=== PATIENT | female | born 2000 | race African-American/Black ===

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

== ENCOUNTER 2018-04-24 17:16 | Emergency (ER) | payer SELFPAY ==
[2018-04-24 18:32] LABS: #Eosinphils 0.2 thou/uL (0.0-0.7); #Lymphocytes 2.7 thou/uL (1.20-3.40); #Monocytes 0.4 thou/uL (0.11-0.59); #Neutrophils 2.9 thou/uL (1.40-6.50); %Basophils 0.3 % (0.0-1.0); %Eosinophils 3.8 % (0.0-10.0); %Lymphocytes 42.6 % (28.0-48.0); %Monocytes 6.7 % (0.0-4.0); %Neutrophils 46.5 % (31.0-61.0); Mean Corpuscular HGB CONC 31.2 g/dL (32.0-36.0); Mean Corpuscular Hemoglobin 21.7 pg (25.0-35.0); Mean Corpuscular Volume 69.6 fL (78.0-98.0); Mean Platelet Volume 9.3 fL (7.4-10.4); Platelet Count 275 thou/uL (130-400); RBC Distribution Width 14.2 % (11.5-14.5); Red Blood Cell (RBC) Count 5.51 mill/uL (4.00-5.20); White Blood Cell (WBC) Count 6.3 thou/uL (4.8-10.8)
[2018-04-24 18:51] LABS: BHCG - Serum Negative (NEGATIVE)
[2018-04-24 18:52] LABS: Pregs Control Background? CLEAR/WHITE (CLR/WHITE); Pregs Control Bar Appear? YES (CONTROL BAR)
[2018-04-24 18:58] LABS: Bilirubin Negative (Negative); Blood, Urine Large (Negative); Clarity CLOUDY (Clear); Glucose, Urine (Dipstick) Negative (Negative); Leukocyte Moderate (Negative); Nitrite Negative (Negative); Pregnancy Test - Urine (BHCG) Negative (Negative); Pregu Control Background? CLEAR/WHITE (CLR/WHITE); Pregu Control Bar Appear? YES (CONTROL BAR); Protein, Urine (Dipstick) 100 mg/dL (Neg-Trace); Specific Gravity 1.031 (1.002-1.036); Specific Gravity, Urine 1.031 (1.002-1.036)
[2018-04-24 19:02] LABS: Bacteria/HPF 1+ HPF (None Seen)
[2018-04-24 19:12] LABS: Hyaline Casts/LPF 0-3 HYALINE CAST LPF (0-3 Hyaline)
[2018-04-24 19:13] LABS: Yeast-All Forms None Seen HPF (None Seen)
[2018-04-24 19:29] LABS: ALT (SGPT) 10 U/L (8-55); AST (SGOT) 17 U/L (5-34); Albumin 4.4 g/dL (3.5-5.0); Alkaline Phosphatase 106 U/L (40-150); Anion Gap 14 mmol/L (10-20); BUN (Urea Nitrogen) 13 mg/dL (7.0-18.7); Bilirubin, Total 0.5 mg/dL (0.2-1.2); Calc. Creatinine Clearance 0 mL/min (70-130); Calcium 9.5 mg/dL (7.8-10.44); Carbon Dioxide 23 mmol/L (22-29); Chloride 105 mmol/L (98-107); Estimated GFR-MDRD 84; Globulin 4.1 g/dL (2.4-3.5); Glucose 85 mg/dL (70-105); Protein, Total 8.5 g/dL (6.0-8.3); Sodium 138 mmol/L (136-145)
== END 2018-04-24 19:51 | disposition home or self-care (01) ==
LOC: ERS 17:16
DX: N93.9 Abnormal uterine and vaginal bleeding, unspecified (principal); J45.909 Unspecified asthma, uncomplicated
CPT/HCPCS: 36415; 80053; 81003; 81015; 81025; 84703; 85025; 87086; 99284

== ENCOUNTER 2019-04-14 17:46 | Emergency (ER) | payer SELFPAY | END 2019-04-14 18:53 | disposition home or self-care (01) | LOC: ERS 17:46 | DX: N61.0 Mastitis without abscess (principal); J45.909 Unspecified asthma, uncomplicated | CPT/HCPCS: 99283 ==

== ENCOUNTER 2019-06-26 16:56 | Emergency (ER) | payer SELFPAY ==
[2019-06-26] MEDS ORDERED: Ondansetron ODT 8 MG TAB ONE (17:51)
[2019-06-26 18:04] LABS: #Basophils 0.1 thou/uL (0.0-0.2); #Eosinphils 0.3 thou/uL (0.0-0.7); #Lymphocytes 2.2 thou/uL (1.20-3.40); #Monocytes 0.5 thou/uL (0.11-0.59); #Neutrophils 2.4 thou/uL (1.40-6.50); %Basophils 1.6 % (0.0-1.0); %Eosinophils 5.9 % (0.0-10.0); %Monocytes 8.9 % (0.0-10.0); %Neutrophils 43.7 % (42.0-75.0); Hemoglobin 13.3 g/dL (12.0-16.0); Mean Corpuscular HGB CONC 32.5 g/dL (32.0-36.0); Mean Corpuscular Hemoglobin 23.1 pg (27.0-31.0); Mean Corpuscular Volume 71.2 fL (78.0-98.0); Mean Platelet Volume 8.7 fL (7.4-10.4); Platelet Count 261 thou/uL (130-400); RBC Distribution Width 13.7 % (11.5-14.5); Red Blood Cell (RBC) Count 5.76 mill/uL (4.20-5.40); White Blood Cell (WBC) Count 5.5 thou/uL (4.8-10.8)
[2019-06-26 18:11] LABS: Bilirubin Negative (Negative); Blood, Urine Negative (Negative); Clarity Clear (Clear); Glucose, Urine (Dipstick) Normal (Negative); Leukocyte Negative Leu/uL (Negative); Nitrite Negative (Negative); Protein, Urine (Dipstick) 10 mg/dL (Neg-Trace); Urobilinogen Normal mg/dL (Less than 2)
[2019-06-26 18:12] LABS: Pregnancy Test - Urine (BHCG) Negative (Negative); Pregu Control Background? CLEAR/WHITE (CLR/WHITE); Pregu Control Bar Appear? YES (CONTROL BAR); Specific Gravity 1.023 (1.002-1.036)
[2019-06-26 18:21] LABS: MDiff Complete? YES; Microcytosis SLIGHT = 6-15 cells (100X) (0-5/hpf); Ovalocytes SLIGHT = 2-5 cells (100X) (0-1/hpf); Platelet Morphology Comment Appears Adequate; Polychromasia SLIGHT = 2-3 cells (100X) (0-2/hpf); Target Cells SLIGHT = 2-5 cells (100X) (0-1/hpf)
[2019-06-26 18:28] LABS: ALT (SGPT) 13 U/L (8-55); AST (SGOT) 18 U/L (5-34); Albumin 4.4 g/dL (3.5-5.0); Alkaline Phosphatase 97 U/L (40-110); Anion Gap 11 mmol/L (10-20); BUN (Urea Nitrogen) 10 mg/dL (7.0-18.7); Bilirubin, Total 0.6 mg/dL (0.2-1.2); Calc. Creatinine Clearance 0 mL/min (70-130); Calcium 9.6 mg/dL (7.8-10.44); Carbon Dioxide 26 mmol/L (22-29); Chloride 105 mmol/L (98-107); Estimated GFR-MDRD 90; Globulin 3.5 g/dL (2.4-3.5); Glucose 74 mg/dL (70-105); Lipase 34 U/L (8-78); Potassium 4.1 mmol/L (3.5-5.1); Protein, Total 7.9 g/dL (6.0-8.3); Sodium 138 mmol/L (136-145)
[2019-06-26 18:32] LABS: BHCG - Serum Negative (NEGATIVE); Pregs Control Background? CLEAR/WHITE (CLR/WHITE); Pregs Control Bar Appear? YES (CONTROL BAR)
== END 2019-06-26 19:04 | disposition home or self-care (01) ==
LOC: ERS 16:56
DX: R11.2 Nausea with vomiting, unspecified (principal)
CPT/HCPCS: 36415; 80053; 81003; 81025; 83690; 84702; 84703; 85025; 94760; 99284

== ENCOUNTER 2019-10-06 23:11 | Emergency (ER) | payer BC ==
[2019-10-06 23:56] LABS: Bilirubin Negative (Negative); Blood, Urine Negative (Negative); Clarity Clear (Clear); Glucose, Urine (Dipstick) Normal (Negative); Leukocyte 250 Leu/uL (Negative); Nitrite Negative (Negative); Protein, Urine (Dipstick) Negative (Neg-Trace); RBC/HPF 0-3 HPF (0-3); Urobilinogen Normal mg/dL (Less than 2)
[2019-10-06 23:57] LABS: Bacteria/HPF 1+ HPF (None Seen)
[2019-10-06 23:59] LABS: BHCG - Serum POSITIVE (NEGATIVE); Pregs Control Background? CLEAR/WHITE (CLR/WHITE); Pregs Control Bar Appear? YES (CONTROL BAR)
[2019-10-07 00:09] LABS: #Basophils 0.1 thou/uL (0.0-0.2); #Eosinphils 0.2 thou/uL (0.0-0.7); #Lymphocytes 1.9 thou/uL (1.20-3.40); #Monocytes 0.4 thou/uL (0.11-0.59); #Neutrophils 4.1 thou/uL (1.40-6.50); %Basophils 0.9 % (0.0-1.0); %Lymphocytes 28.6 % (21.0-51.0); %Neutrophils 61.4 % (42.0-75.0); MDiff Complete? YES; Macrocytosis SLIGHT = 6-15 cells (100X) (0-5/hpf); Mean Corpuscular HGB CONC 32.4 g/dL (32.0-36.0); Mean Corpuscular Volume 70.9 fL (78.0-98.0); Platelet Count 258 thou/uL (130-400); Platelet Morphology Comment Appears Adequate; RBC Distribution Width 13.3 % (11.5-14.5); Red Blood Cell (RBC) Count 5.21 mill/uL (4.20-5.40); White Blood Cell (WBC) Count 6.7 thou/uL (4.8-10.8)
[2019-10-07 00:14] LABS: ALT (SGPT) 27 U/L (8-55); AST (SGOT) 26 U/L (5-34); Alkaline Phosphatase 66 U/L (40-110); Anion Gap 11 mmol/L (10-20); BUN (Urea Nitrogen) 8 mg/dL (7.0-18.7); Bilirubin, Total 0.2 mg/dL (0.2-1.2); Calc. Creatinine Clearance 0 mL/min (70-130); Calcium 8.9 mg/dL (7.8-10.44); Carbon Dioxide 25 mmol/L (22-29); Chloride 106 mmol/L (98-107); Estimated GFR-MDRD 90; Globulin 3.4 g/dL (2.4-3.5); Glucose 125 mg/dL (70-105); Potassium 3.6 mmol/L (3.5-5.1); Protein, Total 7.4 g/dL (6.0-8.3); Sodium 138 mmol/L (136-145)
--- NOTE | 2019-10-07 07:51 | ULT ---
PRELIMINARY REPORT/DIRECT RADIOLOGY/EMERGENCY AFTER HOURS PROCEDURE: EXAM: US Obstetrical, Complete <14 weeks CLINICAL HISTORY: HX: CRAMPING, +PREG. SEE NOTED ON LAST IMAGE. THANKS TECHNIQUE: Transvaginal and transabdominal imaging of the maternal pelvis and a <14 week gestation wi image documentation. COMPARISON: None provided. FINDINGS: GESTATION: An intrauterine gestational sac measures 5.5 mm corresponding to 5 weeks 2 days and a smal l yolk sac may be present UTERUS: Unremarkable. No myometrial mass. Measures 8.2 x 4.6 x 5.0 cm CERVIX: Closed. Unremarkable. OVARIES: Unremarkable. No mass. The RIGHT side measures 2.6 x 2.0 x 3.0 cm and the LEFT side measure s 3.3 x 1.5 x 1.6 cm FREE FLUID: Mild free fluid. IMPRESSION: Early intrauterine gestational sac ELECTRONICALLY SIGNED BY: Kashif Otero MD Oct 07, 2019 12:53:18 AM CDT FINAL REPORT TRANSABDOMINAL AND TRANSVAGINAL PELVIC ULTRASOUND: PROVIDED CLINICAL HISTORY: Pelvic pain and cramping. COMPARISON: None. FINDINGS: Uterus measures about 8.2 x 4.7 x 5 cm. There is an endometrial fluid collection with probable yolk s ac. No pole is evident. Sac diameter corresponds to a 5 week 2 day gestation. There is mildly complex free fluid. The ovaries appear unremarkable. IMPRESSION: 1. Probable intrauterine gestational sac. Correlation with serial follow-up beta hCG values is recomm ended. 2. Free pelvic fluid, mildly complex. Transcribed Date/Time: 10/07/2019 8:12 AM
== END 2019-10-07 00:53 | disposition home or self-care (01) ==
LOC: ERS 23:11
DX: O99.89 Other specified diseases and conditions complicating pregnancy, childbirth and the puerperium (principal); R10.30 Lower abdominal pain, unspecified; R19.7 Diarrhea, unspecified; Z3A.01 Less than 8 weeks gestation of pregnancy
CPT/HCPCS: 76856; 80053; 81003; 81015; 84702; 84703; 85025; 86900; 86901

== ENCOUNTER 2020-01-20 09:52 | Outpatient (CLI) | payer BC, OTHER ==
--- NOTE | 2020-01-20 11:33 | ULT ---
OB ULTRASOUND: HISTORY: anatomy FINDINGS: A single live intrauterine gestation is seen with measurements corresponding to an estimated gestatio nal age of 20 weeks 6 daysand FLORENCIA at 06/02/2020. The estimated weight measures 377 g or 13 ounces (57% by Hadlock criteria). biometry: BPD: 4.90 cm, 20 weeks 6 days HC: 17.95 cm, 20 weeks 3 days AC: 15.34 cm, 20 weeks 4 days FL: 3.53 cm, 21 weeks 2 days heart rate: 156bpm Placenta: Anterior Placenta previa: No PATRICIA: 16.8cm Cervical length: 4.2cm A three-vessel cord, cord insertion, kidneys, urinary bladder, stomach, 4 chambered heart, late ral ventricles, cerebellum, spine, lips/nose, upper and lower extremities are visualized. No definite anomalies are seen. IMPRESSION: Single live intrauterine gestation of 20 weeks 6 daysestimated gestational age and FLORENCIA at 06/02/2020
== END 2020-01-20 09:53 | disposition home or self-care (01) ==
LOC: BICULT 09:52
PROVIDERS: ATTEND Family Medicine
DX: O09.92 Supervision of high risk pregnancy, unspecified, second trimester (principal); Z3A.20 20 weeks gestation of pregnancy
CPT/HCPCS: 76805

== ENCOUNTER 2020-03-12 06:54 | Day surgery (SDC) | payer BC ==
[2020-03-12 07:41] VITALS: BMI 30.9
[2020-03-12 07:47] VITALS: BP 109/67; TEMP 98.3
[2020-03-12] MEDS ORDERED: FLU VACC QS2020-21(6MOS UP)/PF 60 MCG/0.5 ML SYRINGE IM ONE (08:00)
[2020-03-12] MEDS ORDERED: hydrALAZINE 20 MG/ML VIAL SLOW IVP PRN (08:36)
--- NOTE | 2020-03-12 08:39 | PDOC.LDHP ---
Labor and Delivery H&P Chief complaint: abdominal pain HPI: 19 y/o at 28w0d, patient of Dr. Bae, presents with constant, sharp upper abdominal pain that started toward the end of her work shift. She works as a armored car guard and driver and felt like it maybe due to working for 12 hours. Denies any relationship between pain and eating. Pain has now resolved with rest. Denies VB, LOF, ctx, PIH sx, or UTI sx. Had some discharge a few days ago that has resolved. Now states she is ready to go to sleep. ROS neg for HEENT, CV, pulm, GI, , neuro, psych, skin, musculoskeletal, or constitutional symptoms other than mentioned above. OB History Details: 1 term , 9lb 14oz, 4th degree Current complications: none Past Medical History: Denies Current medications: pre- vitamins Previous surgical history: none Allergies/Adverse Reactions: Allergies Allergy/AdvReac Type Severity Reaction Status Date / Time No Known Allergies Allergy Verified 03/12/20 07:39 Social history: none - Physical Exam Vital signs reviewed and normal: yes General: NAD, resting Lungs: nonlabored breathing Abdomen: gravid Extremeties: no edema FHT: category 1 (135, mod variability, + accels, no decels) [place] contractions every: none - Assessment 19 y/o [id number] at 28w0d with musculoskeletal discomforts of , now resolved. status reassuring with reactive NST. No e/o PTL. - Plan -: D/c home with precautions. Comfort measures discussed. Follow up as scheduled with Dr. Bae on Monday.
== END 2020-03-12 08:26 | disposition home or self-care (01) ==
LOC: L&D/OP 06:54
PROVIDERS: ATTEND Family Medicine
DX: O26.893 Other specified pregnancy related conditions, third trimester (principal); R10.10 Upper abdominal pain, unspecified; Z3A.28 28 weeks gestation of pregnancy
CPT/HCPCS: 99282

== ENCOUNTER 2020-04-28 15:59 | Day surgery (SDC) | payer BC, OTHER ==
[2020-04-28 16:45] VITALS: BMI 31.2
[2020-04-28] MEDS ORDERED: hydrALAZINE 20 MG/ML VIAL SLOW IVP PRN (17:15)
[2020-04-28 17:32] LABS: Bacteria/HPF None Seen HPF (None Seen); Bilirubin Negative (Negative); Blood, Urine Negative (Negative); Clarity Clear (Clear); Glucose, Urine (Dipstick) Normal (Negative); Ketone, Urine Negative (Negative); Leukocyte 25 Leu/uL (Negative); Nitrite Negative (Negative); Protein, Urine (Dipstick) Negative (Neg-Trace); RBC/HPF 0-3 HPF (0-3); Specific Gravity, Urine 1.012 (1.002-1.036); Squamous Epithelial 0-3 HPF (0-3); Urobilinogen Normal mg/dL (Less than 2); WBC/HPF 0-3 HPF (0-3); pH, Urine 6.5 (5.0-9.0)
[2020-04-28] MEDS ORDERED: Betamet Acet/Betamet Na Ph 30 MG/5 ML VIAL IM SCH (18:00)
--- NOTE | 2020-04-29 06:15 | PRG ---
DATE OF SERVICE: 04/28/2020 PRIMARY OB: Robert Bae MD CHIEF COMPLAINT: Back pain. HISTORY OF PRESENT ILLNESS: The patient is a 20-year-old, G2, P1 female with an intrauterine at 34 weeks and 5 days, presenting to Labor and Delivery with a 1-day history of back pain with nausea and vomiting last night that has since resolved. The patient reports that the pain began at work. She describes it as sharp, worse with activity and movement and walking and reports that it has continued into today. 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 The patient reports that she vomited about 4 to 5 times last night with abdominal pain after she ate. Her abdominal pain she first felt she was constipated, but after trying to go to the bathroom that was not a problem. This pain and nausea and vomiting had since resolved. The patient denies fever, cough, headache, chest pain, or shortness of breath. She denies any nausea and vomiting currently. Denies any problems with diarrhea or constipation. Denies any new rashes, hip problems, knee problems, or muscle weakness. Denies vaginal bleeding, leakage of fluid, urinary urgency or frequency. PAST MEDICAL HISTORY: Negative. PAST SURGICAL HISTORY: Negative. ALLERGIES: NO KNOWN DRUG ALLERGIES. MEDICATIONS: vitamins. SOCIAL HISTORY: Denies drug, alcohol, or tobacco use. Currently works full-time at the [employer] at the PAC unit at night from 6 p.m. to 6 a.m. OB LABS: Unavailable at the time of dictation. REVIEW OF SYSTEMS: Per HPI. PHYSICAL EXAMINATION: VITAL SIGNS: Blood pressure is 128/68, pulse of 99, saturating 99% on room air, respiratory rate 16, and temperature 98.3. GENERAL: She appears to be in no acute distress. She is alert, oriented, cooperative, and pleasant to interact with. HEAD: Normocephalic, atraumatic. LUNGS: Clear to auscultation bilaterally. HEART: Has regular rate and rhythm. ABDOMEN: Gravid and soft. She does have some tenderness on the right side with deviation of the uterus. She has SI joint tenderness to palpation, which visibly has made it difficult for her to move in the bed. She has no CVA tenderness. EXTREMITIES: Nontender, nonedematous. CERVICAL EXAM: Per nursing staff, is 2, 60, -1 station. DIAGNOSTIC DATA: heart tracing shows the fetus with a baseline in the 140s with moderate long-term variability, positive 15 x 15 accelerations, no decelerations. Tocometer shows a little bit of irritability, but no regular contraction pattern. Urinalysis has a specific gravity of 1.012, negative for protein, ketones, nitrites, has 25 leukocyte esterase, no red blood cells, no white blood cells, no squamous cells, no bacteria. ASSESSMENT AND PLAN: The patient is a 20-year-old female with musculoskeletal pains of and cervical dilation with likely secondary to the nature of her work. She has no evidence right now of labor, though she is at risk for early labor. I will be giving her a shot of betamethasone 12 mg IM today and a second shot tomorrow with the request to come back specifically for that. I have given her a request to refrain from work until she sees Dr. Bae next on the ; at which time, she likely can return to work with per Dr. Bae's recommendations. Fetus has a category 1 tracing and reactive NST. Job ID: [id number]
[2020-04-29] MEDS ORDERED: FLU VACC QS2020-21(6MOS UP)/PF 60 MCG/0.5 ML SYRINGE IM ONE (09:00)
== END 2020-04-28 18:13 | disposition home or self-care (01) ==
LOC: L&D/OP 15:59
PROVIDERS: ATTEND Family Medicine
DX: O26.893 Other specified pregnancy related conditions, third trimester (principal); M54.9 Dorsalgia, unspecified; O21.2 Late vomiting of pregnancy; Z3A.34 34 weeks gestation of pregnancy
CPT/HCPCS: 81001; 96372; 99283; J0702

== ENCOUNTER 2020-04-29 18:08 | Day surgery (SDC) | payer BC, OTHER ==
[2020-04-29 18:52] VITALS: BMI 25.9
[2020-04-29] MEDS ORDERED: Betamet Acet/Betamet Na Ph 30 MG/5 ML VIAL IM SCH (19:00)
== END 2020-04-29 19:00 | disposition home or self-care (01) ==
LOC: L&D/OP 18:08
PROVIDERS: ATTEND Family Medicine
DX: Z29.8 Encounter for other specified prophylactic measures (principal)
CPT/HCPCS: 96372; 99281

== ENCOUNTER 2020-05-04 22:13 | Day surgery (SDC) | payer BC, OTHER ==
[2020-05-05] MEDS ORDERED: hydrALAZINE 20 MG/ML VIAL SLOW IVP PRN (01:43)
--- NOTE | 2020-05-05 02:10 | PRG ---
DATE OF SERVICE: 05/04/2020 PRIMARY OB: Robert Bae MD CHIEF COMPLAINT: Abdominal pain. HISTORY OF PRESENT ILLNESS: The patient is a 20-year-old, G2, P1 female with an intrauterine at 35 weeks and 5 days, presenting to Labor and Delivery with reported uterine contractions that she has been having off and on now. The patient reports that she has been having hip pain and some back pain. She denies leakage of fluid or vaginal bleeding. She denies any painful contractions. PAST MEDICAL HISTORY: Negative. PAST SURGICAL HISTORY: Negative. ALLERGIES: NO KNOWN DRUG ALLERGIES. MEDICATIONS: vitamins. SOCIAL HISTORY: Denies drug, alcohol, tobacco use. She is placed on FMLA given her advanced cervical dilation and labor status. OB LABS: Unavailable at time of dictation. REVIEW OF SYSTEMS: Per HPI. PHYSICAL EXAMINATION: VITAL SIGNS: Blood pressure 115/60, heart rate of 91, respiratory rate of 18, saturating 99% on room air, temperature 98.9. GENERAL: She appears to be in no acute distress. She is alert and oriented, cooperative and pleasant to interact with. HEAD: Normocephalic, atraumatic. LUNGS: Clear to auscultation bilaterally. HEART: Regular rate and rhythm. ABDOMEN: Gravid, soft, nontender. EXTREMITIES: Nontender, nonedematous. CERVIX: Cervical exam per nursing staff is 3, 80, AND -2 station. An hour and 50 minutes later, it is unchanged at 3, 80, and -2 station. The patient at the time of my evaluation requested discharge home as she is tired and just wants to go home and is feeling much better. ASSESSMENT AND PLAN: The patient is a 20-year-old female with an intrauterine at 35 weeks and 5 days with cervical dilation at 3 cm, 80% effaced, and -2 station, which has been unchanged over the course of her stay today. Patient has had known cervical dilation for at least the last week. She is status post steroids for lung maturity and is undergoing expectant management at this time. The patient has been discharged home. Fetus has a category 1 tracing. She has been given labor precautions. Job ID: [id number]
[2020-05-05] MEDS ORDERED: FLU VACC QS2020-21(6MOS UP)/PF 60 MCG/0.5 ML SYRINGE IM ONE (21:00)
== END 2020-05-05 00:58 | disposition home or self-care (01) ==
LOC: L&D/OP 22:13
PROVIDERS: ATTEND Family Medicine
DX: O47.03 False labor before 37 completed weeks of gestation, third trimester (principal); O99.891 Other specified diseases and conditions complicating pregnancy; M25.559 Pain in unspecified hip; M54.9 Dorsalgia, unspecified; Z3A.35 35 weeks gestation of pregnancy
CPT/HCPCS: 99283

== ENCOUNTER 2020-05-09 12:13 | Day surgery (SDC) | payer BC, OTHER ==
[2020-05-09] MEDS ORDERED: Acetaminophen 500 MG TAB PO PRN (13:22)
[2020-05-09] MEDS ORDERED: hydrALAZINE 20 MG/ML VIAL SLOW IVP PRN (13:22)
[2020-05-10] MEDS ORDERED: FLU VACC QS2020-21(6MOS UP)/PF 60 MCG/0.5 ML SYRINGE IM ONE (13:00)
== END 2020-05-09 14:54 | disposition home or self-care (01) ==
LOC: L&D/OP 12:13
PROVIDERS: ATTEND Family Medicine
DX: O47.03 False labor before 37 completed weeks of gestation, third trimester (principal); O99.891 Other specified diseases and conditions complicating pregnancy; R19.7 Diarrhea, unspecified; R10.30 Lower abdominal pain, unspecified; Z3A.36 36 weeks gestation of pregnancy
CPT/HCPCS: 99283

== ENCOUNTER 2020-10-13 17:50 | Emergency (ER) | payer BC, OTHER ==
[2020-10-13] MEDS ORDERED: Lidocaine 1% PF 5 ML VIAL ONE (19:12)
== END 2020-10-13 19:38 | disposition home or self-care (01) ==
LOC: ERS 17:50
DX: K04.01 Reversible pulpitis (principal)
CPT/HCPCS: 64400

== ENCOUNTER 2021-04-01 09:27 | Emergency (ER) | payer OTHER ==
[2021-04-01] MEDS ORDERED: Acetaminophen 500 MG TAB ONE (10:06)
[2021-04-01] MEDS ORDERED: Ibuprofen 800 MG TAB ONE (10:06)
[2021-04-01 17:25] LABS: SARS-CoV-2 PCR by NAA DETECTED (NotDetected)
== END 2021-04-01 10:50 | disposition home or self-care (01) ==
LOC: ERS 09:27
DX: U07.1 COVID-19 (principal); J11.1 Influenza due to unidentified influenza virus with other respiratory manifestations
CPT/HCPCS: 99284; U0003; U0005

== ENCOUNTER 2021-08-24 18:09 | Emergency (ER) | payer OTHER, BC ==
[2021-08-24 19:23] LABS: Bilirubin Negative (Negative); Blood, Urine Negative (Negative); Clarity Clear (Clear); Glucose, Urine (Dipstick) Normal (Negative); Ketone, Urine Negative (Negative); Leukocyte 250 Leu/uL (Negative); Mucous/LPF Rare LPF (<2+); Nitrite Negative (Negative); Pregnancy Test - Urine (BHCG) POSITIVE (Negative); Pregu Control Background? CLEAR/WHITE (CLR/WHITE); Pregu Control Bar Appear? YES (CONTROL BAR); Protein, Urine (Dipstick) 10 mg/dL (Neg-Trace); RBC/HPF 0-3 HPF (0-3); Specific Gravity 1.033 (1.002-1.036); Specific Gravity, Urine 1.033 (1.002-1.036); Urobilinogen Normal mg/dL (Less than 2); pH, Urine 5.5 (5.0-9.0)
[2021-08-24 19:31] LABS: Bacteria/HPF Rare-Few HPF (None Seen)
== END 2021-08-24 20:05 | disposition home or self-care (01) ==
LOC: ERS 18:09
DX: O23.41 Unspecified infection of urinary tract in pregnancy, first trimester (principal); N39.0 Urinary tract infection, site not specified; Z3A.01 Less than 8 weeks gestation of pregnancy
CPT/HCPCS: 81003; 81015; 81025; 99283

== ENCOUNTER 2021-12-16 07:05 | Outpatient (CLI) | payer OTHER | END 2021-12-16 07:06 | disposition home or self-care (01) | LOC: BICULT 07:05 | PROVIDERS: ATTEND Family Medicine | DX: Z34.82 Encounter for supervision of other normal pregnancy, second trimester (principal); Z3A.20 20 weeks gestation of pregnancy | CPT/HCPCS: 76805 ==

== ENCOUNTER 2022-01-18 16:42 | Emergency (ER) | payer OTHER | END 2022-01-18 18:03 | disposition home or self-care (01) | LOC: ERS 16:42 | DX: O9A.23 Injury, poisoning and certain other consequences of external causes complicating the puerperium (principal); S00.83XA Contusion of other part of head, initial encounter; Z3A.25 25 weeks gestation of pregnancy; Y04.0XXA Assault by unarmed brawl or fight, initial encounter | CPT/HCPCS: 99283 ==

== ENCOUNTER 2023-01-22 17:09 | Emergency (ER) | payer OTHER ==
[~2023-01-22 17:09] MED LIST: Iopamidol-370 76% 500 ML MDV (1 ML CHARGE) ONE
[2023-01-22] MEDS ORDERED: Ketorolac Tromethamine 30 MG/ML VIAL ONE (17:56)
[2023-01-22 18:00] LABS: #Eosinphils 0.4 thou/uL (0.0-0.7); #Monocytes 0.4 thou/uL (0.11-0.59); %Basophils 0.3 % (0.0-1.0); %Eosinophils 5.3 % (0.0-10.0); %Lymphocytes 14.8 % (21.0-51.0); %Monocytes 6.4 % (0.0-10.0); %Neutrophils 72.6 % (42.0-75.0); Hemoglobin 13.1 g/dL (12.0-16.0); Mean Corpuscular HGB CONC 31.2 g/dL (32.0-36.0); Mean Corpuscular Hemoglobin 21.9 pg (27.0-31.0); Mean Corpuscular Volume 70.4 fl (78.0-98.0); Mean Platelet Volume 9.8 fL (7.4-10.4); Platelet Count 283 10x3/uL (130-400); RBC Distribution Width 16.3 % (11.5-14.5); Red Blood Cell (RBC) Count 5.97 mill/uL (4.20-5.40); White Blood Cell (WBC) Count 6.8 10x3/uL (4.8-10.8)
[2023-01-22 18:05] LABS: Bilirubin Negative (Negative); Blood, Urine Negative (Negative); Glucose, Urine (Dipstick) Negative (Negative); Ketone, Urine Negative (Negative); Leukocyte Negative (Negative); Nitrite Negative (Negative); Protein, Urine (Dipstick) Negative (Neg-Trace); Urobilinogen 0.2 mg/dL (Less than 2)
[2023-01-22 18:09] LABS: Clarity Clear (Clear); Specific Gravity, Urine 1.026 (1.002-1.036)
[2023-01-22 18:10] LABS: Bacteria/HPF None Seen HPF (None Seen); CAUTI Indications for Culture Pelvic or flank pain; RBC/HPF None Seen HPF (0-3); Squamous Epithelial 0-3 HPF (0-3)
[2023-01-22 18:13] LABS: Pregnancy Test - Urine (BHCG) Negative (Negative); Pregu Control Background? CLEAR/WHITE (CLR/WHITE); Pregu Control Bar Appear? YES (CONTROL BAR); Specific Gravity 1.026 (1.002-1.036); Urine Culture Reflex No No
[2023-01-22 18:22] LABS: Anisocytosis SLIGHT = 6-15 cells HPF (0-5); CellaVision Operator ID LAB.MJL; Hypochromia SLIGHT = 6-15 cells HPF (0-5); Ovalocytes SLIGHT = 2-5 cells HPF (0-1); Platelet Adequacy Comment Platelets Normal; Polychromasia SLIGHT = 2-3 cells HPF (0-2)
[2023-01-22 18:24] LABS: ALT (SGPT) 19 U/L (8-55); AST (SGOT) 18 U/L (5-34); Albumin 4.7 g/dL (3.5-5.0); Alkaline Phosphatase 90 U/L (40-110); Anion Gap 13 mmol/L (10-20); BUN (Urea Nitrogen) 12 mg/dL (7.0-18.7); Bilirubin, Total 1.4 mg/dL (0.2-1.2); Calc. Creatinine Clearance 0 mL/min (70-130); Calcium 9.5 mg/dL (7.8-10.44); Carbon Dioxide 22 mmol/L (22-29); Chloride 105 mmol/L (98-107); Estimated GFR 94; Globulin 3.3 g/dL (2.4-3.5); Glucose 87 mg/dL (70-105); Lipase 38 U/L (8-78); Potassium 4.1 mmol/L (3.5-5.1); Sodium 136 mmol/L (136-145)
== END 2023-01-22 20:07 | disposition home or self-care (01) ==
LOC: ERS 17:09
DX: R10.9 Unspecified abdominal pain (principal)
CPT/HCPCS: 74177; 80053; 81001; 81025; 83690; 85025; 96361; 96374; J1885; Q9967

== ENCOUNTER → 2024-03-07 | Emergency (ER) | payer SELFPAY ==
[~2024-03-07] MED LIST changes: +Acetaminophen 500 MG TAB ONE; -Iopamidol-370 76% 500 ML MDV (1 ML CHARGE) ONE; +Ondansetron ODT 4 MG TAB ONE
[2024-03-12 12:54] LABS: Clarity Clear (Clear); Leukocyte 25 Leu/uL (Negative); Nitrite Negative (Negative); Pregnancy Test - Urine (BHCG) Negative (Negative); Pregu Control Background? CLEAR/WHITE (CLR/WHITE); Pregu Control Bar Appear? YES (CONTROL BAR); Specific Gravity 1.026 (1.002-1.036); Specific Gravity, Urine 1.026 (1.002-1.036)
[2024-03-12 12:55] LABS: Bacteria/HPF 1+ HPF (None Seen); Bilirubin Negative (Negative); Blood, Urine Negative (Negative); Glucose, Urine (Dipstick) Negative (Negative); Ketone, Urine Negative (Negative); Protein, Urine (Dipstick) 10 mg/dL (Neg-Trace); RBC/HPF 0-3 HPF (0-3); Urobilinogen Normal mg/dL (Less than 2)
== END ==
LOC: ERS 09:46
DX: R10.30 Lower abdominal pain, unspecified (principal); R11.0 Nausea; R19.7 Diarrhea, unspecified
CPT/HCPCS: 99283; Q0162